=== PATIENT | male | born 1965 | race Caucasian/White ===

== ENCOUNTER 2021-02-14 09:55 | Inpatient (IN) | payer OTHER ==
[2021-02-14 10:33] VITALS: BMI 21.8
[2021-02-14] MEDS ORDERED: METHOCARBAMOL 500 MG TABLET PO PRN (11:51)
[2021-02-14] MEDS ORDERED: MENTHOL/PHENOL 1 EACH UD MM PRN (11:51)
[2021-02-14] MEDS ORDERED: MAG HYDROX/AL HYDROX/SIMETH 30 ML UNIT-DOSE CUP PO PRN (11:51)
[2021-02-14] MEDS ORDERED: NICOTINE 10 MG CARTRIDGE (INHALER) IH PRN (11:51)
[2021-02-14] MEDS ORDERED: MAGNESIUM HYDROX 2400MG/30ML ORAL SUSPENSION 30 ML CUP PO PRN (11:51)
[2021-02-14] MEDS ORDERED: IBUPROFEN 400 MG TABLET (FP) PO PRN (11:51)
[2021-02-14] MEDS ORDERED: ONDANSETRON *ODT* 4 MG TABLET SL PRN (11:51)
[2021-02-14] MEDS ORDERED: ACETAMINOPHEN 325 MG TABLET (FP) PO PRN ×2 (11:51)
[2021-02-14] MEDS ORDERED: MAGNESIUM CITRATE 300 ML BOTTLE PO PRN (11:51)
[2021-02-14] MEDS: diazePAM 5 MG TABLET PO PRN (12:35)
[2021-02-14] MEDS: hydrOXYzine PAMOATE 25 MG CAPSULE (FP) PO SCH ×3 (13:23→22:30)
[2021-02-14] MEDS: diazePAM 5 MG TABLET PO SCH ×2 (17:10→22:29)
[2021-02-14] MEDS: MELATONIN 5 MG TABLETS PO SCH (22:29)
[2021-02-14] MEDS: THIAMINE HCL 100 MG TABLET (FP) PO SCH (22:30)
[2021-02-15] MEDS: diazePAM 5 MG TABLET PO SCH ×4 (05:06→22:17)
[2021-02-15] MEDS: hydrOXYzine PAMOATE 25 MG CAPSULE (FP) PO SCH ×5 (05:06→22:18)
[2021-02-15] MEDS: BISMUTH SUBSALICYLATE 524 MG/30 ML PO PRN ×2 (05:09→22:21)
[2021-02-15] MEDS: PRENATAL VITAMINS W/ FOLIC ACID TABLET (FP) PO SCH (10:08)
[2021-02-15 13:35] LABS: CHLORIDE 97 mmol/L (98-107); SODIUM 138 mmol/L (136-145)
[2021-02-15 13:36] LABS: HEMOGLOBIN 15.9 GM/dL (11.7-16.9); MCH 36.2 pg (25.7-33.7); MCHC 35.2 g/dl (32.0-35.9); MEAN CELL VOLUME 102.7 fl (80-96); MEAN PLT VOLUME 8.2 fl (7.5-11.1); PLATELET COUNT 111 10^3/uL (134-434); RBC 4.38 M/mm3 (4.00-5.60); RDW 16.7 % (11.9-15.9); WHITE BLOOD COUNT 4.6 K/mm3 (4.0-10.0)
[2021-02-15 13:54] LABS: CALCIUM 9.2 mg/dL (8.5-10.1); CO2 32 mmol/L (21-32)
[2021-02-15 13:55] LABS: ALBUMIN 3.8 g/dl (3.4-5.0); BLOOD UREA NITROGEN 14.9 mg/dL (7-18); GLUCOSE,RANDOM 88 mg/dL (74-106)
[2021-02-15 13:57] LABS: SGPT/ALT 54 U/L (13-61)
[2021-02-15 13:58] LABS: BILIRUBIN,TOTAL 1.8 mg/dL (0.2-1); CREATININE 0.8 mg/dL (0.55-1.3); TOT PROT 6.8 g/dl (6.4-8.2)
[2021-02-15 13:59] LABS: ALK PHOS 75 U/L (45-117)
[2021-02-15 14:04] LABS: ANION GAP 9 MMOL/L (8-16); SGOT/AST 79 U/L (15-37)
[2021-02-15] MEDS ORDERED: POTASSIUM CHLORIDE ORAL LIQUID 20 MEQ/15 ML PO ONE (14:26)
[2021-02-15] MEDS: ARTIFICIAL TEARS (POLYVINYL ALCOHOL) OPTH DROPS OU PRN (22:16)
[2021-02-15] MEDS: POTASSIUM CHLORIDE ORAL LIQUID 20 MEQ/15 ML PO SCH (22:18)
[2021-02-15] MEDS: MELATONIN 5 MG TABLETS PO SCH (22:18)
[2021-02-15] MEDS: GABAPENTIN 300 MG CAPSULE PO SCH (22:18)
[2021-02-15] MEDS: THIAMINE HCL 100 MG TABLET (FP) PO SCH (22:18)
[2021-02-16] MEDS: hydrOXYzine PAMOATE 25 MG CAPSULE (FP) PO SCH ×5 (05:25→22:18)
[2021-02-16] MEDS: GABAPENTIN 300 MG CAPSULE PO SCH ×3 (05:25→22:18)
[2021-02-16] MEDS: diazePAM 5 MG TABLET PO SCH ×3 (05:25→22:19)
[2021-02-16] MEDS: ARTIFICIAL TEARS (POLYVINYL ALCOHOL) OPTH DROPS OU PRN ×4 (05:26→22:22)
[2021-02-16] MEDS: BISMUTH SUBSALICYLATE 524 MG/30 ML PO PRN ×4 (05:27→22:19)
[2021-02-16] MEDS ORDERED: SERTRALINE HCL 50 MG TABLET (FP) PO SCH (10:00)
[2021-02-16] MEDS: PRENATAL VITAMINS W/ FOLIC ACID TABLET (FP) PO SCH (10:22)
[2021-02-16] MEDS: POTASSIUM CHLORIDE ORAL LIQUID 20 MEQ/15 ML PO SCH ×2 (10:23→22:18)
[2021-02-16] MEDS: SERTRALINE HCL 50 MG TABLET (FP) PO SCH (10:23)
[2021-02-16 18:18] LABS: ALBUMIN 3.6 g/dl (3.4-5.0); BLOOD UREA NITROGEN 16.6 mg/dL (7-18); CALCIUM 9.1 mg/dL (8.5-10.1); CREATININE 0.8 mg/dL (0.55-1.3); TOT PROT 6.7 g/dl (6.4-8.2)
[2021-02-16] MEDS: MELATONIN 5 MG TABLETS PO SCH (22:18)
[2021-02-16] MEDS: THIAMINE HCL 100 MG TABLET (FP) PO SCH (22:18)
[2021-02-17] MEDS: GABAPENTIN 300 MG CAPSULE PO SCH (05:13)
[2021-02-17] MEDS: hydrOXYzine PAMOATE 25 MG CAPSULE (FP) PO SCH ×2 (05:13→10:04)
[2021-02-17] MEDS: ARTIFICIAL TEARS (POLYVINYL ALCOHOL) OPTH DROPS OU PRN ×2 (05:14→10:04)
[2021-02-17] MEDS: BISMUTH SUBSALICYLATE 524 MG/30 ML PO PRN (05:15)
[2021-02-17] MEDS ORDERED: diazePAM 5 MG TABLET PO SCH (06:00)
[2021-02-17 09:01] VITALS: TEMP 97.3
[2021-02-17] MEDS ORDERED: POTASSIUM CHLORIDE ORAL LIQUID 20 MEQ/15 ML PO SCH (10:00)
[2021-02-17] MEDS: SERTRALINE HCL 50 MG TABLET (FP) PO SCH (10:04)
[2021-02-17] MEDS: PRENATAL VITAMINS W/ FOLIC ACID TABLET (FP) PO SCH (10:05)
[2021-02-17] MEDS: diazePAM 5 MG TABLET PO PRN (10:06)
[2021-02-17 12:53] VITALS: BP 120/78; PULSE 111
[2021-02-17] MEDS ORDERED: POTASSIUM CHLORIDE TABS 20 MEQ TABLET.ER (FP) PO SCH (22:00)
[2021-02-18] MEDS ORDERED: diazePAM 5 MG TABLET PO ONE (06:00)
== END 2021-02-17 13:21 | disposition home or self-care (01) | DRG 775 ==
LOC: YASAS 09:55 → Y3N 11:37
PROVIDERS: ADMIT Allergy & Immunology; ATTEND Allergy & Immunology
PROC: HZ2ZZZZ Detoxification Services for Substance Abuse Treatment (ICD-10-PCS; principal; 2021-02-14)
DX: F10.230 Alcohol dependence with withdrawal, uncomplicated (principal); F41.8 Other specified anxiety disorders; F32.A Depression, unspecified; E87.6 Hypokalemia; E86.0 Dehydration; G47.00 Insomnia, unspecified; R00.0 Tachycardia, unspecified; R74.8 Abnormal levels of other serum enzymes; Z62.810 Personal history of physical and sexual abuse in childhood
CPT/HCPCS: 36415; 80053; 84132; 85027; 86780; 93005; 93010; C9803; Q0162; U0003; U0005